=== PATIENT | male | born 1995 | race Caucasian/White ===

== ENCOUNTER 2021-04-21 08:09 | Emergency (ER) | payer OTHER ==
[2021-04-21] MEDS ORDERED: DIPHTH,PERTUSS(ACELL),TET 0.5 ML DISP.SYRIN IM ONE ×2 (08:13→08:39)
[2021-04-21] MEDS ORDERED: LIDOCAINE 2.5%/PRILOCAINE 2.5% (5 Gram/TUBE) TP ONE (08:14)
[2021-04-21] MEDS ORDERED: LIDOCAINE 2.5%/PRILOCAINE 2.5% 30 GRAM TUBE TP ONE (08:15)
[2021-04-21 08:21] VITALS: BP 130/80; PULSE 90; TEMP 98.4; BMI 37.5
[2021-04-21] MEDS ORDERED: CIPROFLOXACIN 500 MG TABLET (RESTRICTED TO ID) PO ONE (08:32)
[2021-04-21] MEDS ORDERED: CIPROFLOXACIN 250 MG TABLET (RESTRICTED TO ID) PO ONE (08:38)
== END 2021-04-21 09:26 | disposition home or self-care (01) ==
LOC: FER 08:09
PROC: 3E0234Z Introduction of Serum, Toxoid and Vaccine into Muscle, Percutaneous Approach (ICD-10-PCS; principal; 2021-04-21)
DX: S91.312A Laceration without foreign body, left foot, initial encounter (principal); W25.XXXA Contact with sharp glass, initial encounter; Y92.093 Driveway of other non-institutional residence as the place of occurrence of the external cause
CPT/HCPCS: 73630-TC-LT; 90471; 90715; 99284-25

== ENCOUNTER 2021-05-06 17:58 | Emergency (ER) | payer OTHER ==
[2021-05-06 18:02] VITALS: BP 110/76; PULSE 84; TEMP 98.4; BMI 31.1
[2021-05-06] MEDS ORDERED: AMOX TR/POT CLAV 875MG/125MG TABLETS (FP) ONE (18:18)
[2021-05-06] MEDS ORDERED: AMOX TR/POT CLAV 875MG/125MG TABLETS (FP) PO ONE (18:19)
== END 2021-05-06 18:30 | disposition home or self-care (01) ==
LOC: FER 17:58
DX: S91.312A Laceration without foreign body, left foot, initial encounter (principal); Y99.9 Unspecified external cause status; Z48.02 Encounter for removal of sutures
CPT/HCPCS: 99283-25

== ENCOUNTER 2024-03-18 10:55 | Observation (INO) | payer OTHER ==
[2024-03-18 11:30] VITALS: BMI 39.4
[2024-03-18] MEDS ORDERED: CHARCOAL/WATER SOLUTION 25 GM/120 ML TUBE ONE ×2 (11:30→11:34)
[2024-03-18] MEDS: CHARCOAL/SORBITOL SOLUTION 25 GM/120 ML BTL PO ONE (11:56)
[2024-03-18 14:00] LABS: HEMATOCRIT 42.5 % (35.4-49); HEMOGLOBIN 14.2 G/dL (11.7-16.9); MCH 28.2 pg (25.7-33.7); MCHC 33.3 g/dl (32.0-35.9); MEAN CELL VOLUME 84.7 fl (80-96); MEAN PLT VOLUME 8.2 fl (7.5-11.1); PLATELET COUNT 266.7 10^3/uL (134-434); RBC 5.02 10^6/uL (4.00-5.60); RDW 14.2 % (11.9-15.9); WHITE BLOOD COUNT 8.7 10^3/uL (4.0-10.8)
[2024-03-18 14:10] LABS: ALBUMIN 4.6 g/dl (3.4-5.0); ALK PHOS 79 U/L (45-117); ANION GAP 13 mmol/L (4-13); BILIRUBIN,TOTAL 0.3 mg/dl (0.2-1); CALCIUM 9.3 mg/dl (8.5-10.1); CHLORIDE 100 mmol/L (98-107); CO2 24 mmol/L (21-32); GLUCOSE,RANDOM 84 mg/dl (74-106); POTASSIUM 3.4 mmol/L (3.5-5.1); SGOT/AST 20 U/L (15-37); SGPT/ALT 25 U/L (7-52); SODIUM 137 mmol/L (136-145); TOT PROT 7.5 g/dl (6.4-8.2)
[2024-03-18 15:05] LABS: PLATELET ESTIMATE ADEQUATE
[2024-03-18] MEDS: PATIENT'S OWN MEDICATION (NON-FORMULARY) (Rufinamide 400 MG Tablet) PO SCH (20:02)
[2024-03-18] MEDS: lamoTRIgine 100 MG TABLET PO SCH (20:03)
[2024-03-18] MEDS: cloBAZam 10 MG TABLET PO SCH (21:55)
[2024-03-18] MEDS: risperiDONE 1 MG TABLET PO SCH (21:56)
[2024-03-19 08:31] LABS: HEMATOCRIT 40.2 % (35.4-49); HEMOGLOBIN 13.2 G/dL (11.7-16.9); MCHC 32.8 g/dl (32.0-35.9); MEAN CELL VOLUME 85.2 fl (80-96); MEAN PLT VOLUME 8.1 fl (7.5-11.1); PLATELET COUNT 223.8 10^3/uL (134-434); RBC 4.72 10^6/uL (4.00-5.60); RDW 13.9 % (11.9-15.9); WHITE BLOOD COUNT 6.9 10^3/uL (4.0-10.8)
[2024-03-19 08:59] LABS: CALCIUM 8.9 mg/dl (8.5-10.1); CREATININE 0.9 mg/dl (0.6-1.3); POTASSIUM 4.3 mmol/L (3.5-5.1)
[2024-03-19] MEDS: FLUoxetine HCL 20 MG CAPSULE PO SCH (09:42)
[2024-03-19 10:27] VITALS: BP 128/60; PULSE 68; RESP 18; TEMP 98.6
== END 2024-03-19 10:35 | disposition home or self-care (01) ==
LOC: FER 10:55 → FM/S 15:19
DX: T44.7X1A Poisoning by beta-adrenoreceptor antagonists, accidental (unintentional), initial encounter (principal); F84.0 Autistic disorder; X58.XXXA Exposure to other specified factors, initial encounter; Y92.89 Other specified places as the place of occurrence of the external cause; Z88.0 Allergy status to penicillin
CPT/HCPCS: 36415; 80048; 80053; 85027; 93005; 99285-25; G0378